=== PATIENT | female | born 1965 | race Caucasian/White ===

== ENCOUNTER 2024-12-29 13:39 | Emergency (ER) | payer BC ==
[~2024-12-29] VITALS: Ht 165.1 cm; Wt 90.0 kg
--- NOTE | 2024-12-29 15:10 | Physician Documentation ---
History of Present Illness ~ Chief Complaint: Post-operative complication Stated Complaint: SWELLING ON FOREHEAD AFTER SURGERY Time Seen by MD: 14:05 OK to notify your PCP?: Yes Source: patient Mode of Arrival: POV Exam Limitations: no limitations HPI This is a 59-year-old female who comes in for swelling to the forehead at a surgical site. The patient evidently had a forehead lift performed by Dr. Webber plastic surgeon five days ago. The patient was states that she was at a wedding today and it was laughing very hard and began to have pronounced swelling of the forehead beneath the suture site. The swelling has extended across the entire forehead area causing a pressure sensation but no significant pain. There was some bleeding from some of the areas that are sutured. The patient called with Dr. Webber her plastic surgeon who stated that he believes that she probably ruptured a blood vessel beneath the forehead flap causing the edema. Medication Reconciliation Allergies: Coded Allergies: Penicillins (Verified Allergy, Mild, rash, 12/29/24) Physical Exam Vital Signs: Temperature: 98.2, Source: Temporal, Heart Rate: 88, Respiratory Rate: 14, BP: 168/100, Pulse Oximetry: 99, Weight: 90.000 Oxygen Flow Rate: 0 Pulse Oximetry Reflects: adequate oxygenation General Appearance: alert, WD/WN, no apparent distress Face The patient has significant edema of the forehead area. At the area of the hairline there is a running absorbable stitch. There is an area of dried blood right at the mid upper forehead. There was no active hemorrhaging. The area is very fluctuant. There was no signs of bacterial infection or erythema. Procedures Additional Procedures Procedure Note Attempted evacuation of a postsurgical forehead hematoma: After verbal consent from the patient and understood draped, prepped in sterile procedure I cleansed with the outer skin of an already existing open draining area of the sutures. I anesthetized with the opening of the wound with a 1% lidocaine with the epinephrine. I then blunt dissected down with scissors into the hematoma. He was able to express some watery bloody fluid. I then introduced a sterile Tate suction catheter into the hematoma and began to suction out some of the hematoma however the patient did not tolerate this well at all and the procedure was stopped with the patient was request. A bulky gauze wrap was placed around the head and a Andrea wrap over this for some compression. The patient will have to have the rest of the procedure done by her plastic surgeon under general anesthesia tomorrow. Progress Results/Orders Reviewed/noted all lab results: Yes Results/Orders Orders - TERRENCE TIRADO Laceration/I&D Tray Set Up (12/29/24 14:56) Completed Orders - TERRENCE TIRADO Diazepam Tablet (Valium Tablet) (12/29/24 14:50) Lidocaine 1% W/Epi 1:100,000 (Xylocaine (12/29/24 15:00) Medications Received in ER Medications (Trade) Dose Ordered Sig/Chiqui Route PRN Reason Start Time Stop Time Status Last Admin Dose Admin (Valium tablet) 5 mg ONCE ONCE PO 12/29/24 14:50 12/29/24 14:51 DC 12/29/24 15:11 5 MG Vital Signs 12/29/24 12/29/24 13:47 15:12 Temp 98.2 98.2 Pulse 88 86 Resp 14 16 B/P (MAP) 168/100 162/92 (115) Pulse Ox 99 98 O2 Flow Rate 0 0 Medical Decision Making Findings I spoke with Dr. Webber directly who asked if I would go into the area that was open and hemorrhage and expand the opening, express some of the hematoma, place a [place] drain in the opening and wrap the area with a compression dressing. I did clean the wound were the hemorrhage 1st took place and anesthetized the opening with 1% lidocaine with epinephrine. I then blunt dissected down into the hematoma cavity I tried to suction out with a Tate suction catheter however the patient did not tolerate the procedure at all and the procedure was stopped at her request. I spoke at length with the sister who agreed with the procedure she will be stopped and this will need to happened with her plastic surgeon under general anesthesia tomorrow. I did apply a bulky gauze compression dressing with an Andrea wrap around the forehead. Additional Comment Postsurgical complication. Ruptured blood vessel beneath the surgical site. Forehead edema. Hematoma of the forehead. Departure Disposition: HOME / SELF CARE / HOMELESS Impression: Primary Impression: Traumatic hematoma of forehead Condition: Stable Discharge Instructions: Hematoma Additional Instructions: Keep the wrap on until you follow up with Dr. Webber tomorrow. As we discussed unfortunately we are not able to tolerate the procedure here today and we will probably with the knee general anesthesia. Sleep with your head elevated. I would not drink anymore alcohol or take anything that width in the blood such as aspirin or any NSAIDs such as Aleve, ibuprofen or Motrin. Referrals: NO PRIMARY CARE PROVIDER (PCP) Signature Scribe Signature: No scribe Attestation: The note accurately reflects work and decisions made by me.Terrence ROSENBERG 12/29/24 16:13 TERRENCE TIRADO Dec 29, 2024 15:10
[2024-12-29] MEDS: diazepam 5mg tablet PO ONE (15:11)
[2024-12-29 15:12] VITALS: TEMP 98.2
[2024-12-29] MEDS: LIDOcaine 1% W/epiNEPHrine 1:100,000 20ml vial SQ ONE (15:12)
[2024-12-29 16:54] VITALS: BP 158/86; PULSE 77; RESP 16; O2SAT 100
== END 2024-12-29 16:57 | disposition home or self-care (01) ==
LOC: ER 13:40
DX: S00.83XA Contusion of other part of head, initial encounter (principal); Z88.0 Allergy status to penicillin; X58.XXXA Exposure to other specified factors, initial encounter; Y93.89 Activity, other specified; Y92.89 Other specified places as the place of occurrence of the external cause; Y99.8 Other external cause status
CPT/HCPCS: 99283; A6446; A6449